=== PATIENT | male | born 1965 | race Two or more races ===

== ENCOUNTER 2023-04-10 08:54 | Emergency (ER) | payer MEDICAID ==
[~2023-04-10] VITALS: Ht 170.2 cm; Wt 95.3 kg
[2023-04-10] MEDS: IV NS 0.9% 1,000 ML BAG IV ONE (09:27)
[2023-04-10] MEDS ORDERED: METOCLOPRAMIDE HCL 10 MG/2 ML VIAL ONE (09:30)
[2023-04-10] MEDS ORDERED: KETOROLAC TROMETHAMINE 15 MG/ML VIAL ONE (09:31)
[2023-04-10] MEDS ORDERED: ONDANSETRON HCL/PF 4 MG/2 ML VIAL ONE (09:31)
[2023-04-10] MEDS: METOCLOPRAMIDE HCL 10 MG/2 ML VIAL IV ONE (09:35)
[2023-04-10] MEDS: KETOROLAC TROMETHAMINE 15 MG/ML VIAL IV ONE (09:36)
[2023-04-10] MEDS: ONDANSETRON HCL/PF 4 MG/2 ML VIAL IVP ONE (09:36)
[2023-04-10 09:54] LABS: BASOPHILS % (AUTO) 0.3 % (0.0-2.0); EOSINOPHILS # (AUTO) 0.1 K/uL (0.0-0.7); EOSINOPHILS % (AUTO) 0.8 % (0.0-6.0); HEMATOCRIT 46 % (39-51); HEMOGLOBIN 15.9 g/dL (13.5-17.5); LYMPHOCYTES # (AUTO) 1.9 K/uL (0.8-4.8); LYMPHOCYTES % (AUTO) 26.9 % (20.0-44.0); MEAN CORPUSCULAR HEMOGLOBIN 32 PG (26.0-33.0); MEAN CORPUSCULAR HGB CONC 34 g/dl (31.0-36.0); MEAN CORPUSCULAR VOLUME 92 fL (80-96); MONOCYTES # (AUTO) 0.6 K/uL (0.1-1.30); MONOCYTES % (AUTO) 8.8 % (2.0-12.0); NEUTROPHILS # (AUTO) 4.4 K/uL (1.8-8.9); NEUTROPHILS % (AUTO) 63.2 % (43.0-81.0); PLATELET COUNT (AUTO) 114 K/uL (150-450); RED BLOOD CELL COUNT(AUTO) 5.01 MIL/uL (4.5-6.0); RED CELL DISTRIBUTION WIDTH 13.7 % (11.5-15.0); WHITE BLOOD COUNT (AUTO) 6.9 K/uL (4.3-11.0)
[2023-04-10 10:03] LABS: CALCIUM, SERUM 9.1 mg/dL (8.5-10.1); CREATININE 0.6 mg/dL (0.6-1.3); POTASSIUM 3.4 mmol/L (3.5-5.1)
[2023-04-10 10:16] LABS: ALBUMIN 3.8 g/dL (3.4-5.0); BILIRUBIN,DIRECT 0.4 mg/dL (0.0-0.2); BILIRUBIN,TOTAL 1.2 mg/dL (0.2-1.0); TOTAL PROTEIN, SERUM 8.5 g/dL (6.4-8.2)
[2023-04-10] MEDS ORDERED: ONDA4TAB11 PO (11:56)
[2023-04-10 12:07] VITALS: BP 140/89; TEMP 98.1; O2SAT 99
== END 2023-04-10 12:07 | disposition home or self-care (01) ==
LOC: ER 08:54
DX: K52.9 Noninfective gastroenteritis and colitis, unspecified (principal); R11.2 Nausea with vomiting, unspecified; I10 Essential (primary) hypertension
CPT/HCPCS: 99284; 96374; 96375; 96361; 85025; 80048; 83690; 80076; 36415; J2765; J2405; J7030; J1885

== ENCOUNTER 2024-01-22 13:18 | Emergency (ER) | payer MEDICAID ==
[~2024-01-22] VITALS: Ht 175.3 cm; Wt 95.3 kg
[~2024-01-22 13:18] MED LIST: ONDA4TAB11 PO
[2024-01-22] MEDS ORDERED: IBUP-1955 PO (13:58)
[2024-01-22] MEDS ORDERED: BENZ-13 PO (13:58)
[2024-01-22] MEDS ORDERED: KETOROLAC TROMETHAMINE 15 MG/ML VIAL ONE (14:01)
[2024-01-22] MEDS: KETOROLAC TROMETHAMINE 15 MG/ML VIAL IM ONE (14:05)
[2024-01-22 14:37] VITALS: BP 134/80; TEMP 99.9; O2SAT 98
== END 2024-01-22 14:38 | disposition home or self-care (01) ==
LOC: ER 13:30
DX: J06.9 Acute upper respiratory infection, unspecified (principal); E11.9 Type 2 diabetes mellitus without complications; R07.89 Other chest pain; Z20.822 Contact with and (suspected) exposure to COVID-19
CPT/HCPCS: 99283; 87426; 96372; 87804 ×2; J1885